=== PATIENT | male | born 1955 | race Caucasian/White ===

== ENCOUNTER 2019-04-05 04:55 | Inpatient (IN) ==
--- NOTE | 2019-02-25 09:35 | PAT Medication Instructions ---
Medication Instructions Date of Service February 25, 2019 Home Medications [Glucosamine-MSM Complex] 2 tab PO QAM ibuprofen 800 mg PO QAM multivitamin 1 tab PO QAM omega 9-oxp-ygi-fish oil [Fish Oil] 2 cap PO QAM saw palmetto fruit 1,350 mg PO QAM ASK your surgeon for instructions ibuprofen 800 mg PO QAM STOP taking 2 weeks before surgery [Glucosamine-MSM Complex] 2 tab PO QAM omega 9-alw-qqc-fish oil [Fish Oil] 2 cap PO QAM saw palmetto fruit 1,350 mg PO QAM DO NOT take the morning of surgery multivitamin 1 tab PO QAM Other Notes If you have any questions please call us at [phone] or [phone] or [phone] or [phone]
--- NOTE | 2019-02-25 10:01 | Anesthesiology Consultation ---
Date of Service February 25, 2019 Assessment & Plan (1) Encounter for pre-operative examination: Chart Review Chart Review: Acceptable Risk for Surgery and Patient seen in Pre Admission Testing Teaching & Discussion Instructed NPO after midnight before surgery, except medications with 15 cc of water. Medication instructions provided according to the PAT guidelines. History Surgery Operation Date: 04/05/19 08:50 Proposed Procedures p Left Total Hip Replacement - Lj Belcher MD Height/Weight Height: 6 ft 2 in Weight: 89.1 kg Allergies Allergy/AdvReac Type Severity Reaction Status Date / Time No Known Allergies Allergy Unknown Verified 06/27/09 11:01 Medications Home Medications Medication Instructions Recorded Confirmed Last Taken centugzss-cca-F-joy-herbal 21 2 tab PO QAM 02/18/19 02/18/19 Unknown [Glucosamine-MSM Complex] ibuprofen 800 mg PO QAM 02/18/19 02/18/19 Unknown multivitamin 1 tab PO QAM 02/18/19 02/18/19 Unknown omega 8-ymx-rkx-fish oil [Fish Oil] 2 cap PO QAM 02/18/19 02/18/19 Unknown saw palmetto fruit 1,350 mg PO QAM 02/18/19 02/18/19 Unknown Past Medical History Medical History No known health problems Osteoarthritis Exercise / Class Metabolic Activity 1 > 8 Run/Swim/Ski/Tennis (daily exercise, denies CP or SOB) Past Family History Family History Father Family history of diabetes mellitus Past Surgical History Surgical History History of meniscectomy of left knee X2 History of total right hip replacement Hx of hernia repair X2 Hx of meniscectomy of right knee Hx of tonsillectomy Hx of wisdom tooth extraction Past Anesthesia History No Hx of Anesthesia Complications and No Family Hx of Anesthesia Complications History of PONV No Hx of PONV and No Hx of Motion Sickness Social History Smoking Status: Never smoker Do You Dip or Chew Tobacco: No (QUIT 2000) Hx Alcohol Use: Yes Alcohol type: beer and wine alcohol intake frequency: a few times a month Hx Substance Use: No Review of Systems Pt denies any recent chest pain, shortness of breath, palpitations, cough, fever or URI. Physical Exam Vital Signs BP: 113/78 P: 73bpm SPO2: 96% RA T: 98.0 F R: 12 ENMT Mouth: + dental restorations (few implants upper R lower L) and + chipped teeth (few chipped); no loose teeth Thyromental Distance: > or= 3.5 Finger Breadths (4) Mallampati Class: I Neck normal visual inspection; neck extension not limited Respiratory normal respiratory effort Auscultation: lungs clear to auscultation bilaterally Cardiovascular Rate/Rhythm: regular rate and regular rhythm Heart Sounds: no murmur Vessels: no carotid bruit Extremities: no edema Testing Laboratory Results 02/25/19 10:15 02/25/19 10:15 PT 10.1 Seconds (9.0-12.0) 02/25/19 10:15 INR 1.0 (0.9-1.1) 02/25/19 10:15 APTT 26.6 Seconds (21.0-31.0) 02/25/19 10:15 Blood Type A Positive 02/25/19 10:15 Antibody Screen NEGATIVE 02/25/19 10:15 Electrocardiogram Date: 02/25/19 Findings: + NSR @ (66) Chest X-Ray Date: 02/25/19 FINDINGS: Lung volumes are normal. Lungs are clear. There is no pneumothorax or pleural effusion. Cardiac size is normal. Mediastinal contours are normal. There is no evidence for pulmonary edema. There is slight elevation of the right hemidiaphragm. A possible calcified left lower lung nodule is unchanged. IMPRESSION: No acute cardiopulmonary findings.
[2019-02-25 10:45] LABS: Basophils # (auto) 0.02 K/uL (0-0.2); Basophils % (auto) 0.3 %; Eosinophils # (auto) 0.23 K/uL (0-0.5); Eosinophils % (auto) 3.7 %; Hematocrit (blood only) 47.1 % (42-52); Hemoglobin 16.3 g/dL (14.0-18.0); Lymphocytes # (auto) 1.29 K/uL (1.2-3.4); Mean Corpuscular Hgb Conc 34.6 g/dL (32-36); Mean Corpuscular Volume 99.6 fL (80-100); Mean Platelet Volume 10.2 fL (7.4-10.4); Monocytes # (auto) 0.56 K/uL (0.11-0.59); Monocytes % (auto) 9.1 %; Neutrophils # (auto) 4.04 K/uL (1.4-6.5); Neutrophils % (auto) 65.9 %; Platelet Count 199 K/uL (130-400); RDW Coefficient of Variation 12.3 % (11.5-14.5); RDW Standard Deviation 44.5 fL (36.4-46.3); Red Blood Count 4.73 M/uL (4.7-6.1); White Blood Count 6.14 K/uL (4.8-10.8)
--- NOTE | 2019-02-25 10:45 | XRay Report ---
XR chest Pre-admission PA/Lat CLINICAL HISTORY: Preoperative evaluation. COMPARISON STUDY: Chest radiograph May 29, 2009. FINDINGS: Lung volumes are normal. Lungs are clear. There is no pneumothorax or pleural effusion. Car diac size is normal. Mediastinal contours are normal. There is no evidence for pulmonary edema. There is slight elevation of the right hemidiaphragm. A possible calcified left lower lung nodule is uncha nged. IMPRESSION: No acute cardiopulmonary findings. Electronically signed by: Anderson Holguin M.D. 02/25/2019 10:43 AM
[2019-02-25 10:55] LABS: BUN Creatinine Ratio 21.1 (10-20); Blood Urea Nitrogen 22 mg/dl (7-18); C Reactive Protein < 0.29 mg/dl (0-0.29); Calcium 9.4 mg/dl (8.5-10.1); Carbon Dioxide 30 mmol/L (21-32); Chloride 106 mmol/L (98-107); Creatinine Clr Calc Pharmacy 84.2 ml/min; Est GFR (African American) 88.6; Est GFR (Non-African American) 76.4; Glucose 90 mg/dl (70-99); Potassium 4.8 mmol/L (3.5-5.1); Sodium 139 mmol/L (136-145)
[2019-02-25 11:04] LABS: Partial Thromboplastin Time 26.6 Seconds (21.0-31.0); Prothrombin Time 10.1 Seconds (9.0-12.0)
--- NOTE | 2019-03-27 17:21 | History and Physical Report ---
DATE OF ADMISSION: 04/05/2019 CHIEF COMPLAINT: Persistent left hip pain and discomfort. HISTORY OF PRESENT ILLNESS: The patient is a 63-year-old very active gentleman who is well known to me from previous right hip replacement done about 10 years ago. He has developed increased pain and discomfort in his left hip, particularly over the past 6 months to a year. We have treated him conservatively with medicines. His symptoms have continued to progress. He is having difficulty performing activities that he enjoys such as martial arts. He cannot walk more than a couple blocks. He describes groin and thigh pain. No numbness. This is really affecting his quality of life and his lifestyle and he would like to have his left hip fixed. He is very happy with the right hip. We did try 1 bursal injection which did not help much at all. He did have an intraarticular hip joint injection which helped him for several days to a week or two, but that is it. He now elected to proceed with definitive treatment. PAST MEDICAL HISTORY: Significant for: 1. Gastroesophageal reflux disease. 2. Basal cell skin cancer. PAST SURGICAL HISTORY: Previous surgeries includes: 1. Multiple knee surgeries. 2. Right hip arthroscopy. 3. Right hip replacement 10 years ago. 4. Herniorrhaphy. 5. Tonsillectomy. ALLERGIES: None. CURRENT MEDICATIONS: Include: 1. Saw palmetto. 2. Multivitamin. 3. Multiple supplements. 4. Anti-inflammatory medicines. SOCIAL HISTORY: A 63-year-old male. He is quite active. He participates in judo and martial arts. FAMILY HISTORY: Noncontributory. REVIEW OF SYSTEMS: Negative for diabetes, neurologic problem, vascular problem, bleeding disorders. Denies any chest pain, no shortness of breath. No history of DVT or PE. No known bleeding problems. PHYSICAL EXAMINATION: GENERAL: Shows a healthy, pleasant middle-aged male. Looks to be in excellent health. HEENT: Benign. NECK: Supple, no lymphadenopathy. LUNGS: Clear to auscultation. HEART: Regular rate and rhythm. ABDOMEN: Soft, nontender, nondistended. EXTREMITIES: Grossly neurovascularly intact except as follows. Examination of the left hip reveals the patient walks with just slight bit of a limp. Leg lengths clinically appear pretty equal. He does have some varicose veins distally. He does have pain with any type of hip motion. He can internally rotate to about neutral. This does cause pain and recreate his pain. External rotation to 20 degrees. Negative straight leg raise. No knee effusion. He is neurologically intact. X-RAYS: X-rays left hip were reviewed. It shows moderately advanced left hip DJD. He has got 75% loss of his joint space. Right hip looks to be in good position. ASSESSMENT: A 63-year-old gentleman, very active martial art student, 10 years out from right hip replacement with progressive left hip pain and discomfort consistent with progressive hip arthritis. He did get a temporary response to injection. It is affecting his lifestyle and he would like to have his left hip replaced. PLAN: We are going to take him to the Operating Room and do a left total hip replacement. The risks and benefits of this procedure were explained to the patient including but not limited to DVT, PE, , infection, neurological injury, vascular injury, bleeding problem, pain, limited range of motion, stiffness, failure to relieve symptoms, incomplete relief of symptoms, need for further surgery in future, fracture, leg length inequality, nerve palsy, etc. The patient understands and desires to proceed. Informed consent was obtained. The fact that he responded well to the injection for a week, it certainly suggests it is coming from his hip joint. I did talk to her about the leg lengths and we will do the best we can to make his leg lengths equal. We will have to maximize his stability as he participates in judo which certainly puts her at increased risk for instability. He should be able to be discharged home and likely use [facility] for outpatient therapy postoperatively.
[2019-04-05] MEDS ORDERED: GABAPENTIN 300 MG CAP PO SCH (06:00)
[2019-04-05] MEDS ORDERED: METOCLOPRAMIDE HCL 10 MG TABLET PO SCH (06:00)
[2019-04-05] MEDS ORDERED: CEFAZOLIN 2000MG 2,000 MG/15 ML SYR IV SCH (06:00)
[2019-04-05] MEDS ORDERED: TRANEXAMIC ACID 1,000 MG **IV Pre-op IV SCH (06:00)
[2019-04-05] MEDS ORDERED: SCOPOLAMINE 1.5 MG TDSY TD SCH (06:00)
[2019-04-05] MEDS ORDERED: FAMOTIDINE 20 MG TAB PO SCH (06:00)
[2019-04-05] MEDS ORDERED: LR 500ML BOLUS, THEN 15ML/HR IV SCH (06:00)
[2019-04-05] MEDS ORDERED: LR 60ML/HR IV SCH (06:00)
[2019-04-05] MEDS ORDERED: ACETAMINOPHEN 500 MG TAB PO SCH (06:00)
[2019-04-05] MEDS ORDERED: MIDAZOLAM HCL 1 MG/ML 2ML VIAL ONE (06:27)
[2019-04-05] MEDS ORDERED: LIDOCAINE HCL 2% 2 ML VIAL/AMP(20MG/ML) INFIL ONE (06:28)
[2019-04-05] MEDS ORDERED: ONDANSETRON INJ 2 MG/ML 2 ML VIAL ONE (06:28)
[2019-04-05] MEDS ORDERED: PROPOFOL IV EMULSION 10 MG/ML 20 ML VIAL IV ONE ×2 (06:28→08:23)
[2019-04-05] MEDS ORDERED: fentaNYL citrate 100 MCG/2 ML VIAL ONE ×2 (06:28→11:38)
[2019-04-05] MEDS ORDERED: BUPIVACAINE 0.5 % 5 MG/1 ML PF 10ML VIAL ONE (06:31)
[2019-04-05] MEDS ORDERED: BUPIVACAINE/EPINEPHRINE 0.5% MPF 1:200,000 30 ML VIAL ONE (06:32)
[2019-04-05] MEDS ORDERED: BACITRACIN INJ 50,000 UNIT VIAL ONE (06:32)
--- NOTE | 2019-04-05 06:44 | History & Physical Bridge Note ---
Date of Service April 05, 2019 History & Physical Bridge Note I have examined the patient, reviewed the History & Physical and in the interval since the performance of the History & Physical I have noted the following changes of clinical significance: no changes noted
[2019-04-05] MEDS ORDERED: PROMETHAZINE HCL 12.5 MG in SODIUM CHLORIDE 0.9% 50 ML IV PRN (07:00)
[2019-04-05] MEDS ORDERED: MoRPHine SULFATE PF 1 MG/ML 10 ML AMP/VIAL INT SPINAL ONE (07:00)
[2019-04-05] MEDS ORDERED: SODIUM CHLORIDE 0.9% 1000ML 1,000 ML IV SCH (07:00)
[2019-04-05] MEDS ORDERED: MEPERIDINE HCL 25 MG/ML CARP IV PRN (07:00)
[2019-04-05] MEDS ORDERED: DC INTRASPINAL MORPHINE SCH (07:00)
[2019-04-05] MEDS ORDERED: KETOROLAC 30 MG/ML VIAL IV PRN (07:00)
[2019-04-05] MEDS ORDERED: NO NARCOTICS OR SEDATIVES SCH (07:00)
[2019-04-05] MEDS ORDERED: DiphenhydrAMINE HCL 50 MG/ML VIAL IV PRN (07:00)
[2019-04-05] MEDS ORDERED: NALBUPHINE HCL INJ 10 MG/ML AMP IV PRN (07:00)
[2019-04-05] MEDS ORDERED: ePHEDrine sulfate 50 MG/ML AMP IV PRN (07:00)
[2019-04-05] MEDS ORDERED: NALOXONE HCL 0.08 MG in SYRINGE 1.8 ML IV PRN (07:00)
[2019-04-05] MEDS ORDERED: LACTATED RINGER'S 500 ML IV PRN (07:00)
[2019-04-05] MEDS ORDERED: NALOXONE HCL 0.4 MG/1 ML VIAL/CARP IV PRN ×2 (07:00→09:51)
[2019-04-05] MEDS ORDERED: ONDANSETRON INJ 2 MG/ML 2 ML VIAL IV PRN ×2 (07:00→09:51)
[2019-04-05] MEDS ORDERED: NALOXONE HCL 1 MG in SODIUM CHLORIDE 0.9% 1000ML 1,000 ML IV PRN (07:00)
[2019-04-05] MEDS ORDERED: PHENYLEPHRINE 100MCG/ML 5ML SYR ONE (07:46)
[2019-04-05] MEDS ORDERED: ePHEDrine sulfate 50 MG/ML SYR ONE (07:46)
--- NOTE | 2019-04-05 09:12 | Anesthesiology Progress Note ---
Date of Service April 05, 2019 Anesthesia Post Procedure Vital Signs Vital Signs: Temp Pulse Pulse Resp BP Pulse Ox 04/05/19 09:10 82 16 106/67 96 04/05/19 09:00 36.5 C 77 16 95/60 L 96 04/05/19 08:50 79 16 94/60 L 95 04/05/19 08:42 36.3 C L 94 H 16 106/66 97 04/05/19 05:34 37 C 70 18 138/74 95 Pain Intensity Left Hip: Pain Intensity: 5 Transfer of Care Handoff Completed per policy Notes Mental Status: alert / awake / arousable Patient Amnestic to Procedure: Yes Nausea / Vomiting: adequately controlled Pain: adequately controlled Airway Patency, RR, SpO2: stable & adequate BP & HR: stable & adequate Hydration State: stable & adequate Neuraxial Anesthesia: was administered and sensory block is resolving Anesthetic Complications: no major complications apparent
--- NOTE | 2019-04-05 09:42 | XRay Report ---
XR hip 1V LT w pelvis CLINICAL HISTORY: IN PACU - A/P PELVIS and LATERAL HIP COMPARISON: 02/14/2007 DISCUSSION: Interval total right hip arthroplasty. Current placement of a total left hip arthroplasty. Could contact between prosthetic and underlying b one. Expected soft tissue postoperative change IMPRESSION: 1. Anatomic alignment posttotal left hip arthroplasty. 2. Pre-existing total right hip arthroplasty. The above report was generated using voice recognition software. It may contain grammatical, syntax or spelling errors. Electronically signed by: Gelacio Lucero M.D. 04/05/2019 9:41 AM
[2019-04-05] MEDS ORDERED: TRAMADOL HCL 50 MG TABLET PO PRN (09:51)
[2019-04-05] MEDS ORDERED: HYDROmorphone INJ 0.5 MG/0.5 ML SYR IV PRN (09:51)
[2019-04-05] MEDS ORDERED: BISACODYL 10 MG SUPP PR PRN (09:51)
[2019-04-05] MEDS ORDERED: [UNRECOGNIZED DRUG - OTHER] PO SCH (09:51)
[2019-04-05] MEDS ORDERED: SAW PALMETTO FRUIT PO SCH (09:51)
[2019-04-05] MEDS ORDERED: TAMSULOSIN HCL 0.4 MG CAP PO PRN (09:51)
[2019-04-05] MEDS ORDERED: MULTIVITAMIN TAB PO SCH (09:51)
[2019-04-05] MEDS ORDERED: METOCLOPRAMIDE HCL INJ 5 MG/ML 2 ML VIAL IV PRN (09:51)
[2019-04-05] MEDS ORDERED: ALUMINUM/MAGNESIUM SUSP 30 ML UDC PO PRN (09:51)
[2019-04-05] MEDS ORDERED: MAGNESIUM HYDROXIDE SUSP 30 ML UDC PO PRN (09:51)
[2019-04-05] MEDS: SODIUM CHLORIDE 0.9% 1000ML 1,000 ML IV SCH ×2 (10:52→20:21)
[2019-04-05] MEDS: OMEGA-3 (PURIFIED FISH OIL) 1 GM CAP PO SCH (10:53)
[2019-04-05] MEDS: DOCUSATE SODIUM 100 MG CAP PO SCH ×2 (10:54→20:31)
[2019-04-05] MEDS: MULTIVITAMIN TAB PO SCH (10:54)
[2019-04-05] MEDS: ASPIRIN 81 MG ECTAB PO SCH ×2 (10:54→20:27)
[2019-04-05] MEDS: ACETAMINOPHEN 500 MG TAB PO SCH ×2 (13:29→22:06)
[2019-04-05] MEDS: CEFAZOLIN 2000MG 2,000 MG/15 ML SYR IV SCH ×2 (13:29→21:53)
[2019-04-05] MEDS: KETOROLAC 30 MG/ML VIAL IV SCH ×2 (13:30→20:27)
--- NOTE | 2019-04-05 14:07 | Post Operative Brief Note ---
PG Immediate Post Op with CF Date of Surgery April 05, 2019 Pre & Post Diagnosis Operation Date: 04/05/19 07:00 Pre-Op Diagnosis: Left Hip Degenerative Joint Disease Post-Op Diagnosis: Left Hip Degenerative Joint Disease Procedure Operation Date: 04/05/19 07:00 Actual Procedures p Left Total Hip Arthroplasty, Cemented(Left) - Lj Belcher MD Surgeon Lj Belcher MD Manager Of Broadcast Content None Estimated Blood Loss 300 Findings Consistent with Post-Op Diagnosis Fluids 1000 cc Specimens Specimen Description: Permanent Specimen A: Left Femoral Head Anesthesia Type Spinal MAC Complications none Disposition Accompanied Patient To Recovery: Yes Disposition: Recovery Room
[2019-04-05] MEDS ORDERED: TRANEXAMIC ACID 1,000 MG in 0.9 % SODIUM CHLORIDE 100 ML IV SCH (15:00)
[2019-04-05] MEDS: CHECK SCOPOLAMINE PATCH PLACEMENT SCH (15:56)
[2019-04-05] MEDS: ASCORBIC ACID 500 MG TAB PO SCH (18:24)
[2019-04-05] MEDS: FERROUS GLUCONATE 324 MG TAB PO SCH (18:24)
[2019-04-05] MEDS ORDERED: SENNA 8.6 MG TAB PO SCH (21:00)
[2019-04-06] MEDS: CHECK SCOPOLAMINE PATCH PLACEMENT SCH (00:28)
[2019-04-06] MEDS: KETOROLAC 30 MG/ML VIAL IV SCH ×2 (02:10→08:40)
[2019-04-06] MEDS: SODIUM CHLORIDE 0.9% 1000ML 1,000 ML IV SCH (02:12)
--- NOTE | 2019-04-06 02:47 | Operative Report ---
DATE OF OPERATION: 04/05/2019 DATE OF PROCEDURE: 04/05/2019 SURGEON: Lj Belcher MD DIRECTOR BIOINFORMATICS: None. PREOPERATIVE DIAGNOSIS: Left hip degenerative joint disease. POSTOPERATIVE DIAGNOSIS: Left hip degenerative joint disease. PROCEDURE PERFORMED: Left uncemented ceramic on highly cross-linked polyethylene total hip arthroplasty. COMPLICATIONS: None. ESTIMATED BLOOD LOSS: 300 mL. FLUID REPLACEMENT: 1000 mL crystalloid fluid replacement. ANESTHESIA: Spinal. DRAINS: None. SPECIMENS: Left femoral head sent for pathology. OPERATIVE INDICATIONS: The patient is a 63-year-old very active gentleman who has about 10 years out from right hip replacement. Over the past year, he has developed increased pain and discomfort in his left hip that has gradually gotten worse over time. He failed all conservative care. He had an intra-articular injection which provided pretty good relief for a couple weeks. X-rays show progressive left hip arthritis. He elected to proceed with surgical treatment. OPERATIVE FINDINGS: Operative findings revealed advanced left hip DJD. He had fairly extensive grade 4 changes, but no real eburnation. He did have a large hip joint effusion with some moderate synovitis, moderate size medial osteophyte. OPERATIVE IMPLANTS: Operative implants consisted of: 1. Biomet G7 size 56 mm acetabular shell. 2. A 6.5 cancellous acetabular screws, 1 at 35 mm length and 1 at 20 mm in length. 3. An apex hole eliminator. 4. A highly cross-linked polyethylene liner with a 56 mm outer diameter, 36 mm inner diameter. 5. A DePuy Corail size 13 KLA femoral stem. 6. A +8.5/36 mm ceramic articular ball. OPERATIVE PROCEDURE: The patient was taken to the operating room, identified and placed on the operating table in supine position. Contact areas were appropriately padded. IV antibiotics were provided by the anesthesia team. A spinal anesthetic had been implemented in the holding area. Oglesby catheter was placed in sterile fashion. The patient was then placed in the right lateral decubitus position. An axillary roll was placed. [facility] for positioning. Left hip and leg were then prepped and draped in usual sterile fashion. A posterolateral approach to the left hip was then performed through a curvilinear incision centered over the greater trochanter. Sharp dissection was carried through subcutaneous tissues down to the level of the IT band and gluteal fascia. The IT band and gluteal fascia were incised longitudinally in line with skin incision. The underlying greater trochanteric bursa was excised. Of note, his gluteal musculature extended fairly far down into the IT band area and down to the lateral aspect of the femur. The piriformis and external rotators were then identified and tagged and taken off the posterior aspect of the hip joint capsule. Great care was taken throughout the procedure to protect the sciatic nerve at all times. Posterior capsulotomy was then performed leaving a large flap for later repair. Hip was internally rotated and dislocated. Femoral neck osteotomy cut was made with the final cut about 14-15 mm above the lesser trochanter. Femoral head was removed and sent for pathology. Attention was then drawn to the acetabulum. The acetabulum labrum was excised. It was fairly calcified. He did have a retroverted acetabulum. The pulvinar fat was excised. Sequential reaming of the acetabulum was then performed beginning with size 49 and progressing up to 55. A 56 mm Biomet G7 acetabular shell was then placed in about 40 degrees of lateral opening and 20 degrees of anteversion. We put a little extra anteversion into his cup due to his high activity levels with a lot of bending activities to limit instability. Some anterior osteophytes removed. The acetabular shell was fixed with two 6.5 cancellous acetabular screws. A trial liner was placed. Attention was then drawn to the femur. The proximal femur was entered with a cookie cutter followed by canal finder. I then broached beginning with a size 8 and progressing up to 13. We got excellent fit at 13. A good metaphyseal support. Calcar reamer was used to smoothen off the calcar. I then trialed the hip and I felt the 8.5 articular ball provided appropriate soft tissue tension, leg lengths, and was fully stable in full extension and external rotation and flexion to 90 degrees, internal rotation to [address] I elected to place these implants. All trial implants were removed. An apex hole eliminator was placed. Highly cross-linked polyethylene liner was placed. A DePuy Corail size 13 KLA femoral stem was impacted in position. A +8.5/36 mm ceramic articular ball was placed. Hip was located and once again found to be stable. Attention was then drawn toward closing. The wound was irrigated with copious amounts of pulsatile lavage solution. I did inject locally with 60 mL of 0.5% Marcaine with epinephrine. Posterior capsule and external rotators were then repaired through drill holes and the posterior trochanter with #2 Ti-Cron suture. The IT band and gluteal fascia were then closed with #1 PDS suture in running fashion. The subcutaneous tissues were then closed with 2 layers with deep layer #1 Vicryl suture and subcutaneous tissues with 2-0 Dexon suture in a buried interrupted fashion. Skin was closed with skin rohit. Leg was then cleaned and dried. The hip was dressed with a sterile dressing including Xeroform, 4 x 4, sterile cast padding and a foam tape. The patient then transferred to the recovery room in stable condition. The patient tolerated the procedure well with no complications. All needle and sponge counts were correct at the end of the operation. I attest to the content of the Intraoperative Record and any orders documented therein. Any exception s are noted below.
[2019-04-06] MEDS: ACETAMINOPHEN 500 MG TAB PO SCH (05:37)
[2019-04-06 06:26] LABS: Basophils # (auto) 0.01 K/uL (0-0.2); Basophils % (auto) 0.2 %; Eosinophils # (auto) 0.12 K/uL (0-0.5); Eosinophils % (auto) 1.9 %; Hematocrit (blood only) 39.1 % (42-52); Immature Granulocytes # (auto) 0.01 K/uL (0.00-0.02); Immature Granulocytes % (auto) 0.2 %; Lymphocytes % (auto) 10.8 %; Mean Corpuscular Hgb Conc 33.2 g/dL (32-36); Mean Corpuscular Volume 100.3 fL (80-100); Mean Platelet Volume 10.4 fL (7.4-10.4); Monocytes # (auto) 0.75 K/uL (0.11-0.59); Monocytes % (auto) 11.6 %; Neutrophils # (auto) 4.88 K/uL (1.4-6.5); Neutrophils % (auto) 75.3 %; Platelet Count 132 K/uL (130-400); RDW Coefficient of Variation 12.1 % (11.5-14.5); White Blood Count 6.47 K/uL (4.8-10.8)
[2019-04-06 07:04] LABS: Calcium 8.2 mg/dl (8.5-10.1); Creatinine Clr Calc Pharmacy 93.3 ml/min; Est GFR (African American) 100.2; Est GFR (Non-African American) 86.5; Potassium 4.1 mmol/L (3.5-5.1)
[2019-04-06] MEDS: FERROUS GLUCONATE 324 MG TAB PO SCH (08:40)
[2019-04-06] MEDS: DOCUSATE SODIUM 100 MG CAP PO SCH (08:40)
[2019-04-06] MEDS: MULTIVITAMIN TAB PO SCH (08:40)
[2019-04-06] MEDS: OMEGA-3 (PURIFIED FISH OIL) 1 GM CAP PO SCH (08:40)
[2019-04-06] MEDS: ASPIRIN 81 MG ECTAB PO SCH (08:40)
[2019-04-06] MEDS: ASCORBIC ACID 500 MG TAB PO SCH (08:40)
--- NOTE | 2019-04-06 08:52 | Progress Note ---
DATE: 04/06/2019 SUBJECTIVE: A 63-year-old gentleman postop day 1 from a left hip replacement. He is doing pretty well. Pain is controlled. Denies any chest pain or shortness of breath. Not feeling dizzy or lightheaded. OBJECTIVE: VITAL SIGNS: Temperature 36.6. Vital signs stable. GENERAL: Shows a pleasant, middle-aged male. He was walking the halls this morning with his significant other and with a walker and doing quite well. EXTREMITIES: Examination of the left hip reveals the dressing to be clean, dry and intact. Leg lengths are equal. He can dorsiflex and plantarflex his foot appropriately. He is neurologically intact. LABORATORY DATA: Hemoglobin 13.0, hematocrit 39.1. Electrolytes are stable. ASSESSMENT: A 63-year-old gentleman postop day 1 from a left hip replacement, doing well. Pain is controlled. His hip is located. He is neurologically intact. PLAN: 1. DVT prophylaxis including thigh-high TEDs, SCDs and aspirin twice a day. 2. PT/OT. Weightbear as tolerated. Left total hip protocol. 3. Pain control. Doing well with current pain regimen. 4. Disposition: Plan to discharge to home with some home health later today if he does okay in therapy.
== END 2019-04-06 12:24 | disposition home health service (06) | DRG 470 ==
LOC: ASU 04:55 → 3E 08:44